=== PATIENT | female | born 1980 | race Caucasian/White ===

== ENCOUNTER 2020-12-28 10:45 | Outpatient (CLI) | payer BC | END 2020-12-28 23:59 | disposition home or self-care (01) | LOC: D.MAMMO 10:45 | PROVIDERS: ATTEND Obstetrics & Gynecology Maternal & Fetal Medicine | DX: Z12.31 Encounter for screening mammogram for malignant neoplasm of breast (principal) ==

== ENCOUNTER 2021-01-19 10:08 | Emergency (ER) | payer BC ==
[~2021-01-19] VITALS: Ht 167.6 cm; Wt 75.0 kg
[2021-01-19 10:11] VITALS: BP 137/76; Ht 167.6 cm; Wt 75.0 kg
== END 2021-01-19 11:11 | disposition home or self-care (01) ==
LOC: D.ER 10:08
DX: S91.312A Laceration without foreign body, left foot, initial encounter (principal); W20.8XXA Other cause of strike by thrown, projected or falling object, initial encounter; Y93.9 Activity, unspecified; Y92.9 Unspecified place or not applicable